=== PATIENT | female | born 1950 | race Two or more races ===

== ENCOUNTER 2017-03-02 15:40 | Emergency (ER) | payer SELFPAY ==
[~2017-03-02] VITALS: Ht 162.6 cm; Wt 77.6 kg
--- NOTE | 2017-03-02 16:19 | PHYS DOC ---
Past Medical History Past Medical History: Asthma, Diabetes-Type II Smoking: Quit Greater Than 1 Year Adult General Chief Complaint Chief Complaint: CHEST PAIN HPI HPI Patient is a 67 year old female who presents with ate a history of worsening cough not productive occasional subjective fever, chest tightness with coughing , no exertional chest pain, no nausea vomiting or diarrhea; no dysuria or frequency or flank pain. Former smoker 20 years ago and history of asthma. No prior history of any cardiac disease but has never had any stress testing. Interview done with a environmental services manager. Review of Systems Review of Systems Constitutional: Denies fever or chills [] Eyes: Denies change in visual acuity, redness, or eye pain [] HENT: Denies nasal congestion or sore throat [] Respiratory: Denies cough or shortness of breath [] Cardiovascular: No additional information not addressed in HPI [] GI: Denies abdominal pain, nausea, vomiting, bloody stools or diarrhea [] : Denies dysuria or hematuria [] Musculoskeletal: Denies back pain or joint pain [] Integument: Denies rash or skin lesions [] Neurologic: Denies headache, focal weakness or sensory changes [] Endocrine: Denies polyuria or polydipsia [] Current Medications Current Medications Current Medications Medications (Trade) Dose Ordered Sig/Norma Start Time Stop Time Status Last Admin Dose Admin Albuterol Sulfate (Ventolin Neb Soln) 2.5 mg 1X ONCE 03/02/17 18:45 03/02/17 18:47 DC 03/02/17 19:11 2.5 MG Info (Do NOT chart on this entry -- for MONITORING) 1 each PRN DAILY PRN 03/02/17 19:15 03/02/17 20:13 DC Iohexol (Omnipaque 300 Mg/ml) 60 ml 1X ONCE 03/02/17 19:00 03/02/17 19:01 DC 03/02/17 19:09 60 ML Sodium Chloride 1,000 ml @ 1,000 mls/hr 1X ONCE 03/02/17 18:00 03/02/17 18:59 DC 03/02/17 17:54 1,000 MLS/HR Allergies Allergies Allergies Coded Allergies Type Severity Reaction Last Updated Verified No Known Drug Allergies 03/02/17 No Physical Exam Physical Exam Constitutional: Well developed, well nourished, no acute distress, non-toxic appearance. [] HENT: Normocephalic, atraumatic, bilateral external ears normal, oropharynx moist, no oral exudates, nose normal. [] Eyes: PERRLA, EOMI, conjunctiva normal, no discharge. [] Neck: Normal range of motion, no tenderness, supple, no stridor. [] Cardiovascular:Heart rate regular rhythm, no murmur [] Lungs & Thorax: Bilateral breath sounds clear to auscultation [] Abdomen: Bowel sounds normal, soft, no tenderness, no masses, no pulsatile masses. [] Skin: Warm, dry, no erythema, no rash. [] Back: No tenderness, no CVA tenderness. [] Extremities: No tenderness, no cyanosis, no clubbing, ROM intact, no edema. [] Neurologic: Alert and oriented X 3, normal motor function, normal sensory function, no focal deficits noted. [] Psychologic: Affect normal, judgement normal, mood normal. [] Current Patient Data Vital Signs Vital Signs Date Time Temp Pulse Resp B/P (MAP) Pulse Ox O2 Delivery O2 Flow Rate FiO2 03/02/17 19:57 90 18 162/79 (106) 95 Room Air 03/02/17 16:01 98.5 98.5 Lab Values Laboratory Tests Test 03/02/17 16:10 White Blood Count 10.5 x10^3/uL (4.0-11.0) Red Blood Count 4.08 x10^6/uL (3.50-5.40) Hemoglobin 12.4 g/dL (12.0-15.5) Hematocrit 37.0 % (36.0-47.0) Mean Corpuscular Volume 91 fL (79-100) Mean Corpuscular Hemoglobin 30 pg (25-35) Mean Corpuscular Hemoglobin Concent 33 g/dL (31-37) Red Cell Distribution Width 13.0 % (11.5-14.5) Platelet Count 237 x10^3/uL (140-400) Neutrophils (%) (Auto) 78 % (31-73) H Lymphocytes (%) (Auto) 12 % (24-48) L Monocytes (%) (Auto) 6 % (0-9) Eosinophils (%) (Auto) 3 % (0-3) Basophils (%) (Auto) 1 % (0-3) Neutrophils # (Auto) 8.2 x10^3uL (1.8-7.7) H Lymphocytes # (Auto) 1.3 x10^3/uL (1.0-4.8) Monocytes # (Auto) 0.6 x10^3/uL (0.0-1.1) Eosinophils # (Auto) 0.4 x10^3/uL (0.0-0.7) Basophils # (Auto) 0.1 x10^3/uL (0.0-0.2) D-Dimer (Angela) 0.73 ug/mlFEU (0.00-0.50) H Sodium Level 138 mmol/L (136-145) Potassium Level 4.3 mmol/L (3.5-5.1) Chloride Level 102 mmol/L (98-107) Carbon Dioxide Level 23 mmol/L (21-32) Anion Gap 13 (6-14) Blood Urea Nitrogen 22 mg/dL (7-20) H Creatinine 1.3 mg/dL (0.6-1.0) H Estimated GFR (Cockcroft-Gault) 40.9 Glucose Level 195 mg/dL (70-99) H Calcium Level 9.1 mg/dL (8.5-10.1) Troponin I Quantitative < 0.017 ng/mL (0.000-0.055) Laboratory Tests 03/02/17 16:10 Laboratory Tests 03/02/17 16:10 EKG EKG EKG sinus tachycardia rate 104 no STEMI QTC 497 my interpretation [] Radiology/Procedures Radiology/Procedures Chest x-ray: [Negative per my review] CTA chest negative for pulmonary embolism or infiltrate; there was some incidental finding of coronary disease; lymph nodes present per radiology report. Course & Med Decision Making Course & Med Decision Making Pertinent Labs and Imaging studies reviewed. (See chart for details) Patient remained tachycardic during her stay d-dimer was obtained which was slightly elevated therefore we will obtain a CT of the chest. Reexam 1930: Patient feels improved. Pulse rate in the 90s O2 sat in the mid 90s on room air. Denies any chest pain. CT chest showed no large pulmonary embolus no pneumonia there were some lymph nodes. Plan of care will be dismissal mom follow up with PCP referral for stress test, antibiotic steroids and albuterol inhaler. Patient currently denies any chest pain and she walked out of the emergency department smiling. [] Dragon Disclaimer Dragon Disclaimer This electronic medical record was generated, in whole or in part, using a voice recognition dictation system. Departure Departure Impression: Primary Impression: Cough Additional Impressions: Asthma Bronchitis Disposition: 01 HOME, SELF-CARE Condition: STABLE Referrals: NO PCP (PCP) Patient Instructions: Chronic Asthmatic Bronchitis Scripts Azithromycin (AZITHROMYCIN TABLET) 250 Mg Tablet 1 PKG PO UD, #6 TAB Take 2 tablets on day 1 and 1 tablet daily for the next 4 days Prov: DENIS MAY MD 03/02/17 Prednisone (PREDNISONE) 50 Mg Tablet 1 TAB PO DAILY, #5 TAB Prov: DENIS MAY MD 03/02/17 Albuterol Sulfate (VENTOLIN HFA INHALER) 18 Gm Hfa.aer.ad 2 PUFF INH Q4HRS for FOR ASTHMA for 30 Days, #1 INHALER 0 Refills Prov: DENIS MAY MD 03/02/17 Problem Qualifiers DENIS MAY MD Mar 02, 2017 16:19
--- NOTE | 2017-03-02 16:20 | EKG ---
[facility] [address] [place] [address] Test Date: 2017-03-02 Test Time: 15:55:52 Pat Name: LENCHO LANGLEY Department: Room: Gender: F Sharepoint Administrator: : 1950 Requested By: DENIS MAY Order Number: [id number] Reading MD: Pillo Carlos Measurements Intervals Antonito Rate: 104 P: 69 RI: 148 QRS: -63 QRSD: 128 T: 14 QT: 378 QTc: 497 Interpretive Statements SINUS TACHYCARDIA RBBB Electronically Signed On 03-03-2017 9:29:57 CDT by Pillo Carlos
[2017-03-02 16:26] LABS: BASO # 0.1 x10^3/uL (0.0-0.2); BASO % 1 % (0-3); EOS % 3 % (0-3); HEMOGLOBIN 12.4 g/dL (12.0-15.5); LYMPH # 1.3 x10^3/uL (1.0-4.8); LYMPH % 12 % (24-48); MEAN CORPUSCULAR HEMOGLOBIN 30 pg (25-35); MEAN CORPUSCULAR HGB CONC 33 g/dL (31-37); MEAN CORPUSCULAR VOLUME 91 fL (79-100); MONO % 6 % (0-9); NEUT % 78 % (31-73); PLATELET COUNT 237 x10^3/uL (140-400); RED BLOOD COUNT 4.08 x10^6/uL (3.50-5.40); WHITE BLOOD COUNT 10.5 x10^3/uL (4.0-11.0)
[2017-03-02 16:38] LABS: CALCIUM 9.1 mg/dL (8.5-10.1); CREATININE 1.3 mg/dL (0.6-1.0); GFR 40.9; POTASSIUM 4.3 mmol/L (3.5-5.1)
--- NOTE | 2017-03-02 16:56 | RAD ---
AP portable chest radiograph 03/02/2017 Clinical History: Cough and midsternal chest pressure since earlier today. An AP portable erect digital radiograph of the chest was obtained. No previous studies are available for comparison. The cardiac silhouette is mildly enlarged. The thoracic aorta is tortuous. No acute pulmonary infiltrate is seen. No pleural effusion or pneumothorax is noted. Degenerative changes are seen involving the thoracic spine and both shoulders. Impression: No acute abnormality is seen.
[2017-03-02] MEDS ORDERED: IV NORMAL SALINE 1000ML BAG 1,000 ML IV ONE (18:00)
[2017-03-02] MEDS ORDERED: ALBUTEROL SULFATE 2.5 MG/3 ML NEBU. NEB ONE (18:45)
[2017-03-02] MEDS ORDERED: IOHEXOL 300 MG/ML 75 ML VIAL IV ONE (19:00)
[2017-03-02] MEDS ORDERED: CONTRAST GIVEN MC PRN (19:15)
--- NOTE | 2017-03-02 19:24 | RAD ---
EXAM: CT angiography of the chest with intravenous contrast. HISTORY: Chest pain. Elevated d-dimer. TECHNIQUE: Computed tomographic images of the chest were obtained following the administration of 60 cc 300 Omnipaque intravenous contrast according to angiography protocol. Multiplanar reformatting was performed and 3-dimensional maximum intensity projection images were obtained. *One or more of the following individualized dose reduction techniques were utilized for this examination: 1. Automated exposure control. 2. Adjustment of the mA and/or kV according to patient size. 3. Use of iterative reconstruction technique. COMPARISON: None. FINDINGS: The exam is limited due to suboptimal contrast opacification of the pulmonary arteries. No central ovary embolism is seen. However, the possibility of a subsegmental embolism is not excluded on this exam. The heart is normal in size. The aorta is normal in caliber. There is a standard aortic arch branching pattern. There is coronary artery atherosclerosis. There are a few calcified mediastinal granulomas. There is a prominent right hilar lymph node measuring 1.3 cm, likely physiologic or reactive. There are few prominent lymph nodes within the pericardial fat an adjacent to the distal esophagus, also likely reactive or physiologic. There is no pneumothorax or pleural effusion. There is no infiltrate or suspicious pulmonary nodule. There is a tiny fat-containing left diaphragmatic hernia. There is bilateral posterior dependent and basilar atelectasis. There is also suspected atelectasis within the lateral right middle lobe. There is slight asymmetry of the size of the right greater than left thyroid lobes, without a discrete nodule. There are multiple hemangiomas within the thoracic vertebral column. No suspicious osseous lesion is seen. IMPRESSION: 1. Limited exam for pulmonary embolism due to suboptimal contrast opacification of the pulmonary arteries. No central embolism is seen. The possibility of a subsegmental embolism is not excluded on this exam. 2. Prominent right hilar, pericardial and paraesophageal lymph nodes, likely physiologic or reactive. 3. Coronary artery atherosclerosis. 4. Small fat-containing left diaphragmatic hernia. Electronically signed by: Eryn Meyer MD (03/02/2017 7:20 PM) [facility]
[2017-03-02] MEDS ORDERED: AZIT250T6 PO (19:42)
[2017-03-02] MEDS ORDERED: PRED50TA PO (19:42)
[2017-03-02] MEDS ORDERED: VENTOLIN HFA18 GM INH (19:42)
[2017-03-02 19:57] VITALS: BP 162/79
== END 2017-03-02 20:13 | disposition home or self-care (01) ==
LOC: ER 15:40
DX: J45.909 Unspecified asthma, uncomplicated (principal); R00.0 Tachycardia, unspecified; E11.9 Type 2 diabetes mellitus without complications; Z87.891 Personal history of nicotine dependence
CPT/HCPCS: 36415; 71010; 71275; 80048; 84484; 85025; 85379; 93005; 94250; 94640; 96360; 96361; 99285; J7030; J7613; Q9967